=== PATIENT | female | born 1965 | race Caucasian/White ===

== ENCOUNTER 2022-07-12 14:00 | Outpatient (CLI) | payer MEDICARE | END 2022-07-12 14:01 | disposition home or self-care (01) | LOC: CSHMRI 14:00 | PROVIDERS: ATTEND Anesthesiology Pain Medicine | DX: M54.12 Radiculopathy, cervical region (principal); S46.001A Unspecified injury of muscle(s) and tendon(s) of the rotator cuff of right shoulder, initial encounter; M50.30 Other cervical disc degeneration, unspecified cervical region; M75.111 Incomplete rotator cuff tear or rupture of right shoulder, not specified as traumatic; S43.431A Superior glenoid labrum lesion of right shoulder, initial encounter; M71.811 Other specified bursopathies, right shoulder | CPT/HCPCS: 72141 ==